=== PATIENT | female | born 1935 | race Caucasian/White ===

== ENCOUNTER → 2017-07-19 | Outpatient (CLI) | payer MEDICARE ==
[~2017-07-19] MED LIST: ACET-1600 PO; ASCO-96 PO; ASPI-515 PO; BILB100C PO; CALC-623 PO; CHOL400C PO; CYAN100028 PO; DIPH25CA61 PO; FOLI0.8T2 PO; GINK60TA PO; GLUC1CAP57 PO; HAWT565C PO; LUTE6TAB PO; MAGN400T36 PO; METO25TA2 PO; MILK175T PO; OMEG1CAP6 PO; PYRI25TA3 PO; RED600CA2 PO; S-AD200T PO; UBID100C24 PO; WARF2.5T PO; WARF5TAB PO; ZINC25CA PO; tumeric PO
== END | disposition home or self-care (01) ==
LOC: CFH 08:33
PROVIDERS: ATTEND Internal Medicine Cardiovascular Disease
DX: I08.1 Rheumatic disorders of both mitral and tricuspid valves (principal); I10 Essential (primary) hypertension
CPT/HCPCS: 93306

== ENCOUNTER → 2018-11-18 | Outpatient (CLI) | payer MEDICARE | END | disposition home or self-care (01) | LOC: CFH 07:36 | PROVIDERS: ATTEND Internal Medicine Cardiovascular Disease | DX: I08.1 Rheumatic disorders of both mitral and tricuspid valves (principal); I10 Essential (primary) hypertension; I48.91 Unspecified atrial fibrillation | CPT/HCPCS: 93306 ==

== ENCOUNTER 2019-03-20 07:48 | Outpatient (CLI) | payer MEDICARE ==
[~2019-03-20 07:48] MED LIST changes: +REGADENOSON 0.4 MG/5 ML SYRINGE ONE
== END 2019-03-20 23:59 | disposition home or self-care (01) ==
LOC: CFH 07:48
PROVIDERS: ATTEND Internal Medicine Cardiovascular Disease
DX: I48.91 Unspecified atrial fibrillation (principal)
CPT/HCPCS: 78452; 93017; A9502; J2785